=== PATIENT | male | born 2000 | race African-American/Black ===

== ENCOUNTER 2023-11-12 08:18 | Emergency (ER) | payer OTHER, SELFPAY ==
[2023-11-12 08:27] VITALS: BP 112/61; PULSE 80; RESP 18; TEMP 36.8; O2SAT 99; BMI 23.3
--- NOTE | 2023-11-12 08:48 | ED.GENADULT ---
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 He reports he has had some production of phlegm, he isn't short of breath, he has not had asthma diagnosis before. No other specific complaints. No chest pain, no breathing difficulty no leg swelling or edema. Related Data Previous Rx's ?Medication ?Instructions ?Recorded doxycycline hyclate 100 mg capsule 100 mg PO BID #14 caps 11/12/23 prednisone 20 mg tablet 20 mg PO BID 3 days #6 tabs 11/12/23 Allergies Allergy/AdvReac Type Severity Reaction Status Date / Time No Known Drug Allergies Allergy Verified 11/12/23 08:31 Review of Systems Status of ROS: Reports: 6 or more systems reviewed and unremarkable except as noted in History and below PFSH PFS Social History Smoking Status: Current every day smoker How often do you have a drink containing alcohol: monthly or less AUDIT-C Alcohol total score: 1 Non-prescribed substance use: denies use Exam Narrative: Exam Narrative: Objective: Vital signs look within normal limits, his O2 sat is 99% on room air HEENT unremarkable Supple chest other some basilar wheezes that clear with deep breathing no rales noted Pulse regular Extremities good perfusion Talks in even and nonlabored sentences. Const: Vital Signs, click to edit/add: Vital Signs - 24 hr 11/12/23 08:27 Temperature 98.2 F Pulse Rate [Pulse Oximeter] 80 Respiratory Rate 18 Blood Pressure [Ri ght Upper Arm] 112/61 Pulse Oximetry 99 Oxygen Delivery Me thod Room Air Course Vital Signs Vital signs: Initial Vital Signs Temperature 98.2 F 11/12/23 08:27 Temperature Source Temporal Artery Scan 11/12/23 08:27 Pulse Rate 80 11/12/23 08:27 Respiratory Rate 18 11/12/23 08:27 Blood Pressure 112/61 11/12/23 08:27 Blood Pressure Mean 78 11/12/23 08:27 Blood Pressure Position Sitting 11/12/23 08:27 Pulse Oximetry 99 11/12/23 08:27 Oxygen Delivery Method Room Air 11/12/23 08:27 Vital Signs Temperature 98.2 F 11/12/23 08:27 Pulse Rate 80 11/12/23 08:27 Respiratory Rate 18 11/12/23 08:27 Blood Pressure 112/61 11/12/23 08:27 Pulse Oximetry 99 11/12/23 08:27 Oxygen Delivery Method Room Air 11/12/23 08:27 Temperature 98.2 F 11/12/23 08:27 Pulse Rate 80 11/12/23 08:27 Respiratory Rate 18 11/12/23 08:27 Blood Pressure 112/61 11/12/23 08:27 Pulse Oximetry 99 11/12/23 08:27 Oxygen Delivery Method Room Air 11/12/23 08:27 Medical Decision Making MDM Narrative Medical decision making narrative: 23-year-old black male with smoking history with recurrent bronchitis and productive cough. I think at this point I have given doxycycline 100 mg b.i.d. x7 days, prednisone 20 mg b.i.d. x3 days, recommend strongly to discontinue smoking, would recommend that he recheck with his doctor as needed and consider smoking cessation treatment. He was comfortable this. I will give a couple days off work as well as I think he should recover. Return as needed. Discharge Plan Discharge Clinical Impression: Bronchitis Patient Disposition: Home, Self-Care Condition: Stable Additional Instructions: Antibiotics and steroids as prescribed, recommend strongly that he stop smoking. Recheck with regular doctor as needed. Recommend 2 days off work. Activity Level: Light activity Discharge Diet: Regular Prescriptions: New doxycycline hyclate 100 mg capsule 100 mg PO BID Qty: 14 0RF prednisone 20 mg tablet 20 mg PO BID 3 Days Qty: 6 0RF Stand Alone Forms: ClearFlowth Info Instructions
== END 2023-11-12 09:00 | disposition home or self-care (01) ==
LOC: ED 09:13
PROVIDERS: Emergency Provider Family Medicine
DX: J40 Bronchitis, not specified as acute or chronic (principal)
CPT/HCPCS: 99283